=== PATIENT | male | born 1950 | race Caucasian/White ===

== ENCOUNTER 2016-10-16 08:55 | Emergency (ER) | payer MEDICARE ==
[2016-10-16 09:22] LABS: #Basophils 0.1 thou/uL (0.0-0.2); #Eosinphils 0.2 thou/uL (0.0-0.7); #Lymphocytes 1.3 thou/uL (1.20-3.40); #Monocytes 0.5 thou/uL (0.11-0.59); #Neutrophils 4.9 thou/uL (1.40-6.50); %Basophils 0.8 % (0.0-1.0); %Eosinophils 3.2 % (0.0-10.0); %Lymphocytes 18.9 % (21.0-51.0); %Monocytes 7.2 % (0.0-10.0); Hemoglobin 14.4 g/dL (14.0-18.0); Mean Corpuscular HGB CONC 34.2 g/dL (32.0-36.0); Mean Corpuscular Hemoglobin 32.2 pg (27.0-31.0); Mean Corpuscular Volume 94.2 fl (80.0-94.0); Platelet Count 170 thou/uL (130-400); RBC Distribution Width 12.7 % (11.5-14.5); Red Blood Cell (RBC) Count 4.46 mill/uL (4.70-6.10)
[2016-10-16 09:24] LABS: PTT 28.5 SEC (22.9-36.1); Prothrombin Time 13.2 SEC (12.0-14.7)
[2016-10-16 09:36] LABS: ALT (SGPT) 9 U/L (8-55); AST (SGOT) 8 U/L (5-34); Albumin 3.7 g/dL (3.4-4.8); Alkaline Phosphatase 97 U/L (40-150); Anion Gap 11 mmol/L (10-20); BUN (Urea Nitrogen) 15 mg/dL (8.4-25.7); Bilirubin, Total 0.5 mg/dL (0.2-1.2); CK (CPK) 49 U/L (30-200); Calc. Creatinine Clearance 0 mL/min (70-130); Calcium 8.9 mg/dL (7.8-10.44); Carbon Dioxide 26 mmol/L (23-31); Chloride 103 mmol/L (98-107); Estimated GFR-MDRD 79; Globulin 2.9 g/dL (2.4-3.5); Glucose 194 mg/dL (80-115); Magnesium 2.2 mg/dL (1.6-2.6); Potassium 4.6 mmol/L (3.5-5.1); Protein, Total 6.6 g/dL (5.8-8.1); Sodium 135 mmol/L (136-145)
[2016-10-16 09:42] LABS: CKMB 1.1 ng/mL (0-6.6); Troponin I 0.011 ng/mL (< 0.028)
[2016-10-16] MEDS ORDERED: Nitroglycerin 0.4 MG TAB 1 EACH ONE ×2 (09:43→11:45)
--- NOTE | 2016-10-16 10:21 | RAD ---
UPRIGHT PORTABLE CHEST 1 VIEW: Date: 10/16/16 HISTORY: 66-year-old male with chest pain. COMPARISON: 06/14/15. FINDINGS: Postop midline sternotomy and left ICD. Monitor leads overlie the chest. No confluent pneumonia, ove rt edema, or pleural effusion. Stable from prior study. IMPRESSION: No acute intrathoracic disease. Stable from prior study. POS: [facility]
[2016-10-16] MEDS ORDERED: Nitroglycerin 2% Ointment 1 INCH/1 GM Packet ONE (12:02)
== END 2016-10-16 12:05 | disposition short-term general hospital (02) ==
LOC: MADERS 08:55
DX: I25.110 Atherosclerotic heart disease of native coronary artery with unstable angina pectoris (principal); I10 Essential (primary) hypertension; E11.9 Type 2 diabetes mellitus without complications; I25.2 Old myocardial infarction; Z79.82 Long term (current) use of aspirin; Z79.899 Other long term (current) drug therapy; Z95.810 Presence of automatic (implantable) cardiac defibrillator; Z95.5 Presence of coronary angioplasty implant and graft
CPT/HCPCS: 36415; 71010; 80053; 82550; 82553; 83735; 83880; 84484; 85025; 85610; 85730; 93005; 94760

== ENCOUNTER → 2017-07-29 | Emergency (ER) | payer MEDICARE ==
[~2017-07-29] MED LIST: Iopamidol 370 76% 100 ML VIAL ONE; Ketorolac Tromethamine 30 MG/ML VIAL ONE; MORPHINE 10 MG/ML SYRINGE ONE; Ondansetron ODT 4 MG TAB ONE; Sodium Chloride 0.9% 1,000 ML BAG ONE
[2017-07-29 09:47] LABS: Bilirubin Negative (Negative); Blood, Urine Negative (Negative); Clarity Clear (Clear); Glucose, Urine (Dipstick) 500 mg/dL (Negative); Leukocyte Negative (Negative); Nitrite Negative (Negative); Protein, Urine (Dipstick) Negative (Neg-Trace); Specific Gravity, Urine 1.015 (1.005-1.030); pH, Urine 7.5 (5.0-9.0)
[2017-07-29 10:21] LABS: #Eosinphils 0.2 thou/uL (0.0-0.7); #Lymphocytes 1.5 thou/uL (1.20-3.40); #Monocytes 0.4 thou/uL (0.11-0.59); #Neutrophils 4.2 thou/uL (1.40-6.50); %Basophils 0.7 % (0.0-1.0); %Eosinophils 2.5 % (0.0-10.0); %Lymphocytes 23.6 % (21.0-51.0); %Monocytes 6.7 % (0.0-10.0); %Neutrophils 66.5 % (42.0-75.0); Hemoglobin 14.4 g/dL (14.0-18.0); Mean Corpuscular HGB CONC 35.5 g/dL (32.0-36.0); Mean Corpuscular Volume 92.9 fl (80.0-94.0); Mean Platelet Volume 7.6 fL (7.4-10.4); Platelet Count 153 thou/uL (130-400); RBC Distribution Width 11.9 % (11.5-14.5); Red Blood Cell (RBC) Count 4.38 mill/uL (4.70-6.10); White Blood Cell (WBC) Count 6.3 thou/uL (4.8-10.8)
[2017-07-29 10:33] LABS: ALT (SGPT) 8 U/L (8-55); AST (SGOT) 7 U/L (5-34); Albumin 3.4 g/dL (3.4-4.8); Alkaline Phosphatase 76 U/L (40-150); Anion Gap 11 mmol/L (10-20); BUN (Urea Nitrogen) 15 mg/dL (8.4-25.7); Bilirubin, Total 0.6 mg/dL (0.2-1.2); Calc. Creatinine Clearance 0 mL/min (70-130); Calcium 8.5 mg/dL (7.8-10.44); Carbon Dioxide 27 mmol/L (23-31); Chloride 103 mmol/L (98-107); Estimated GFR-MDRD Greater than 90; Globulin 2.6 g/dL (2.4-3.5); Glucose 202 mg/dL (80-115); Lipase 29 U/L (8-78); Potassium 4.3 mmol/L (3.5-5.1); Sodium 137 mmol/L (136-145)
--- NOTE | 2017-07-29 13:17 | CT ---
CT ABDOMEN WITH CONTRAST CT PELVIS WITH CONTRAST: DATE: 07/29/2017 HISTORY: A 66-year-old male with intermittent right flank pain for three days. COMPARISON: 05/05/2008 TECHNIQUE: IV injection of iodinated contrast media: Administered. Oral contrast media: Administered. FINDINGS: Again noted is the endograft within the infrarenal abdominal aorta. The caliber of the lower abdomin al aorta is 2 cm; there is currently no abdominal aortic aneurysm. The endograft extends into the le ft common femoral artery. There is absence of contrast material in the contralateral right common fe moral artery, the outer caliber of which is also severely narrowed, apparently occluded. There is co ntrast material in the right external iliac artery and right internal iliac artery, from retrograde f low. The bilateral kidneys, pancreas, adrenals, liver, and spleen are normal. There are cholecystec darlene clips in the gallbladder fossa. There is no small bowel dilation. There are no signs of acute colonic diverticulitis. Normal appendix. Lung bases are grossly clear. No ascites or pneumoperiton eum. No significant interval change overall. A vascular graft joins the left and right common femor al arteries. IMPRESSION: 1. No acute findings. 2. Endograft within the lower abdominal aorta and the left common iliac artery. 3. Chronically occluded right common iliac artery. 4. Femoral-femoral arterial bypass graft. 5. Status post cholecystectomy. 6. No interval change overall since 04/19/2008. [facility] POS: [facility]
== END ==
LOC: MADERS 09:09
DX: S39.011A Strain of muscle, fascia and tendon of abdomen, initial encounter (principal); I25.2 Old myocardial infarction; E11.9 Type 2 diabetes mellitus without complications; I10 Essential (primary) hypertension; F17.210 Nicotine dependence, cigarettes, uncomplicated; I25.10 Atherosclerotic heart disease of native coronary artery without angina pectoris; X58.XXXA Exposure to other specified factors, initial encounter
CPT/HCPCS: 36415; 74177; 80053; 81003; 82150; 83690; 85025; 96361; 96372; 96374; J1885; J2270; J7050; Q0162

== ENCOUNTER 2018-01-11 14:59 | Outpatient (CLI) | payer MEDICARE ==
[2018-01-11 23:18] LABS: Creatinine, Urine 78.59 mg/dL (63-166); Microalbumin Urine Less than 1.0 mg/dL (0.5-50.0)
== END 2018-01-11 15:00 | disposition home or self-care (01) ==
LOC: MADLABBHPM 14:59
PROVIDERS: ATTEND Family Medicine
DX: E11.9 Type 2 diabetes mellitus without complications (principal)
CPT/HCPCS: 82043

== ENCOUNTER 2018-01-21 12:04 | Emergency (ER) | payer MEDICARE ==
[2018-01-21 13:02] LABS: #Eosinphils 0.1 thou/uL (0.0-0.7); #Lymphocytes 2.1 thou/uL (1.20-3.40); #Monocytes 0.4 thou/uL (0.11-0.59); #Neutrophils 4.5 thou/uL (1.40-6.50); %Basophils 0.6 % (0.0-1.0); %Lymphocytes 29.4 % (21.0-51.0); %Monocytes 5.5 % (0.0-10.0); %Neutrophils 62.6 % (42.0-75.0); Mean Corpuscular HGB CONC 35.1 g/dL (32.0-36.0); Mean Corpuscular Hemoglobin 31.9 pg (27.0-31.0); Mean Platelet Volume 9.5 fL (7.4-10.4); Platelet Count 163 thou/uL (130-400); RBC Distribution Width 11.6 % (11.5-14.5); White Blood Cell (WBC) Count 7.1 thou/uL (4.8-10.8)
[2018-01-21 13:19] LABS: ALT (SGPT) 9 U/L (8-55); AST (SGOT) 9 U/L (5-34); Albumin 3.7 g/dL (3.4-4.8); Alkaline Phosphatase 81 U/L (40-150); Anion Gap 10 mmol/L (10-20); BUN (Urea Nitrogen) 11 mg/dL (8.4-25.7); Bilirubin, Total 0.8 mg/dL (0.2-1.2); Calc. Creatinine Clearance 0 mL/min (70-130); Calcium 8.8 mg/dL (7.8-10.44); Carbon Dioxide 24 mmol/L (23-31); Chloride 106 mmol/L (98-107); Estimated GFR-MDRD 85; Globulin 2.7 g/dL (2.4-3.5); Glucose 69 mg/dL (80-115); Potassium 4.1 mmol/L (3.5-5.1); Protein, Total 6.4 g/dL (5.8-8.1); Sodium 136 mmol/L (136-145)
--- NOTE | 2018-01-21 13:58 | RAD ---
PORTABLE CHEST: Date 01/21/18 PROVIDED CLINICAL HISTORY: Dyspnea. FINDINGS: Comparison made with study dated 10/16/16. Cardiac and mediastinal silhouette is unchanged in appearance. Median sternotomy changes are seen. Le ft subclavian cardiac pacing device is again seen in similar position. No focal consolidation, pleura l fluid, or pneumothorax apparent. IMPRESSION: No evidence for an acute cardiopulmonary process. POS: [facility]
[2018-01-21 14:39] LABS: Bilirubin Negative (Negative); Blood, Urine Negative (Negative); Clarity Clear (Clear); Glucose, Urine (Dipstick) Negative (Negative); Leukocyte Negative (Negative); Nitrite Negative (Negative); Protein, Urine (Dipstick) Negative (Neg-Trace); Urobilinogen 0.2 mg/dL (0.2-1.0); pH, Urine 7.5 (5.0-9.0)
== END 2018-01-21 14:57 | disposition short-term general hospital (02) ==
LOC: MADERS 12:04
DX: I20.9 Angina pectoris, unspecified (principal); I25.2 Old myocardial infarction; I10 Essential (primary) hypertension; E11.9 Type 2 diabetes mellitus without complications; F17.210 Nicotine dependence, cigarettes, uncomplicated; Z79.82 Long term (current) use of aspirin; Z79.899 Other long term (current) drug therapy
CPT/HCPCS: 36416; 71045; 80053; 81003; 83880; 84484; 85025; 93005

== ENCOUNTER 2018-05-02 12:18 | Emergency (ER) | payer MEDICARE ==
--- NOTE | 2018-05-02 12:50 | RAD ---
PORTABLE UPRIGHT FRONTAL CHEST: Date: 05/02/18 COMPARISON: 01/21/18. HISTORY: Chest pain. FINDINGS: Stable single lead AICD and midline sternotomy wires. Mild diffuse increased linear interstitial dens ity, stable. No pneumothorax, pleural fluid, focal consolidation, or alveolar edema. IMPRESSION: Stable appearance of the chest. No acute findings. POS: [facility]
[2018-05-02 12:51] LABS: #Basophils 0.1 thou/uL (0.0-0.2); #Eosinphils 0.1 thou/uL (0.0-0.7); #Lymphocytes 1.9 thou/uL (1.20-3.40); #Monocytes 0.4 thou/uL (0.11-0.59); #Neutrophils 3.2 thou/uL (1.40-6.50); %Basophils 0.9 % (0.0-1.0); %Eosinophils 1.6 % (0.0-10.0); %Lymphocytes 33.7 % (21.0-51.0); %Neutrophils 56.8 % (42.0-75.0); Hemoglobin 13.8 g/dL (14.0-18.0); Mean Corpuscular Hemoglobin 31.5 pg (27.0-31.0); Mean Corpuscular Volume 92.6 fL (78.0-98.0); Platelet Count 175 thou/uL (130-400); RBC Distribution Width 12.7 % (11.5-14.5); White Blood Cell (WBC) Count 5.7 thou/uL (4.8-10.8)
[2018-05-02 13:11] LABS: ALT (SGPT) 7 U/L (8-55); AST (SGOT) 7 U/L (5-34); Albumin 3.7 g/dL (3.4-4.8); Alkaline Phosphatase 68 U/L (40-150); Anion Gap 11 mmol/L (10-20); BUN (Urea Nitrogen) 17 mg/dL (8.4-25.7); Bilirubin, Total 0.6 mg/dL (0.2-1.2); Calc. Creatinine Clearance 0 mL/min (70-130); Calcium 8.9 mg/dL (7.8-10.44); Carbon Dioxide 23 mmol/L (23-31); Chloride 106 mmol/L (98-107); Estimated GFR-MDRD 73; Globulin 2.8 g/dL (2.4-3.5); Glucose 185 mg/dL (80-115); Potassium 4.9 mmol/L (3.5-5.1); Protein, Total 6.5 g/dL (5.8-8.1); Sodium 135 mmol/L (136-145)
== END 2018-05-02 15:03 | disposition short-term general hospital (02) ==
LOC: MADERS 12:18
DX: I20.9 Angina pectoris, unspecified (principal); I25.2 Old myocardial infarction; I10 Essential (primary) hypertension; E11.9 Type 2 diabetes mellitus without complications; F17.210 Nicotine dependence, cigarettes, uncomplicated; Z79.82 Long term (current) use of aspirin; Z79.899 Other long term (current) drug therapy
CPT/HCPCS: 36415; 71045; 80053; 83880; 84484; 85025; 93005

== ENCOUNTER 2019-06-06 09:26 | Emergency (ER) | payer MEDICARE ==
--- NOTE | 2019-06-06 10:06 | RAD ---
EXAM: Single view of the chest HISTORY: Chest pain COMPARISON: 05/02/2018 FINDINGS: Single view of the chest shows a normal sized cardiomediastinal silhouette. The pacemaker is unchanged in position. The patient is status post sternotomy. There is no evidence of consolidation, mass, or pleural effusion. The bones are unremarkable. IMPRESSION: No evidence of acute cardiopulmonary disease
[2019-06-06 10:11] LABS: #Basophils 0.1 thou/uL (0.0-0.2); #Eosinphils 0.2 thou/uL (0.0-0.7); #Lymphocytes 1.8 thou/uL (1.20-3.40); #Monocytes 0.5 thou/uL (0.11-0.59); #Neutrophils 4.9 thou/uL (1.40-6.50); %Basophils 0.7 % (0.0-1.0); %Eosinophils 2.2 % (0.0-10.0); %Lymphocytes 24.7 % (21.0-51.0); %Monocytes 6.5 % (0.0-10.0); Hemoglobin 14.5 g/dL (14.0-18.0); Mean Corpuscular HGB CONC 32.6 g/dL (32.0-36.0); Mean Corpuscular Hemoglobin 30.7 pg (27.0-31.0); Mean Corpuscular Volume 94.1 fL (78.0-98.0); Mean Platelet Volume 9.7 fL (7.4-10.4); Platelet Count 162 thou/uL (130-400); RBC Distribution Width 11.7 % (11.5-14.5); Red Blood Cell (RBC) Count 4.74 mill/uL (4.70-6.10); White Blood Cell (WBC) Count 7.5 thou/uL (4.8-10.8)
[2019-06-06 10:16] LABS: Prothrombin Time 12.8 SEC (12.0-14.7)
[2019-06-06 10:25] LABS: ALT (SGPT) 10 U/L (8-55); AST (SGOT) 7 U/L (5-34); Albumin 3.9 g/dL (3.4-4.8); Alkaline Phosphatase 76 U/L (40-110); Anion Gap 12 mmol/L (10-20); BUN (Urea Nitrogen) 12 mg/dL (8.4-25.7); Bilirubin, Total 0.7 mg/dL (0.2-1.2); Calc. Creatinine Clearance 0 mL/min (70-130); Calcium 8.6 mg/dL (7.8-10.44); Carbon Dioxide 24 mmol/L (23-31); Chloride 104 mmol/L (98-107); Estimated GFR-MDRD 75; Globulin 2.7 g/dL (2.4-3.5); Glucose 191 mg/dL (80-115); Potassium 4.6 mmol/L (3.5-5.1); Protein, Total 6.6 g/dL (5.8-8.1); Sodium 135 mmol/L (136-145)
== END 2019-06-06 12:05 | disposition short-term general hospital (02) ==
LOC: MADERS 09:26
DX: R07.9 Chest pain, unspecified (principal); I25.10 Atherosclerotic heart disease of native coronary artery without angina pectoris; I25.2 Old myocardial infarction; I10 Essential (primary) hypertension; E11.9 Type 2 diabetes mellitus without complications; E78.5 Hyperlipidemia, unspecified; F17.210 Nicotine dependence, cigarettes, uncomplicated; Z79.82 Long term (current) use of aspirin; Z79.899 Other long term (current) drug therapy; Z95.1 Presence of aortocoronary bypass graft; Z79.02 Long term (current) use of antithrombotics/antiplatelets; Z79.84 Long term (current) use of oral hypoglycemic drugs
CPT/HCPCS: 36416; 71045; 80053; 83880; 84484; 85025; 85610; 93005

== ENCOUNTER 2023-07-26 12:11 | Emergency (ER) | payer OTHER, SELFPAY ==
[~2023-07-26 12:11] MED LIST changes: -Ketorolac Tromethamine 30 MG/ML VIAL ONE; -MORPHINE 10 MG/ML SYRINGE ONE; -Ondansetron ODT 4 MG TAB ONE; -Sodium Chloride 0.9% 1,000 ML BAG ONE
[2023-07-26] MEDS ORDERED: Ketorolac Tromethamine 30 MG (1 mL) VIAL ONE (12:41)
[2023-07-26 13:11] LABS: #Eosinphils 0.2 thou/uL (0.0-0.7); #Lymphocytes 1.9 thou/uL (1.20-3.40); #Monocytes 0.4 thou/uL (0.11-0.59); %Basophils 0.7 % (0.0-1.0); %Eosinophils 2.8 % (0.0-10.0); %Lymphocytes 28.6 % (21.0-51.0); %Monocytes 6.6 % (0.0-10.0); %Neutrophils 61.3 % (42.0-75.0); Hematocrit 44.6 % (42.0-52.0); Hemoglobin 14.9 g/dL (14.0-18.0); Mean Corpuscular HGB CONC 33.3 g/dL (32.0-36.0); Mean Corpuscular Hemoglobin 31.1 pg (27.0-31.0); Mean Corpuscular Volume 93.5 fl (78.0-98.0); Platelet Count 157 10x3/uL (130-400); RBC Distribution Width 12.4 % (11.5-14.5); Red Blood Cell (RBC) Count 4.77 mill/uL (4.70-6.10); White Blood Cell (WBC) Count 6.5 10x3/uL (4.8-10.8)
[2023-07-26 13:27] LABS: ALT (SGPT) 9 U/L (8-55); AST (SGOT) 8 U/L (5-34); Albumin 3.9 g/dL (3.4-4.8); Alkaline Phosphatase 80 U/L (40-110); Anion Gap 12 mmol/L (10-20); BUN (Urea Nitrogen) 13 mg/dL (8.4-25.7); Bilirubin, Total 0.7 mg/dL (0.2-1.2); Calc. Creatinine Clearance 0 mL/min (70-130); Carbon Dioxide 23 mmol/L (23-31); Chloride 103 mmol/L (98-107); Estimated GFR 86; Glucose 191 mg/dL (83-110); Lipase 26 U/L (8-78); Magnesium 1.8 mg/dL (1.6-2.6); Potassium 4.4 mmol/L (3.5-5.1); Protein, Total 6.9 g/dL (5.8-8.1); Sodium 134 mmol/L (136-145)
[2023-07-26 14:04] LABS: Bilirubin Negative (Negative); Blood, Urine Negative (Negative); Clarity Clear (Clear); Glucose, Urine (Dipstick) Negative (Negative); Ketone, Urine Negative (Negative); Leukocyte Moderate (Negative); Nitrite Negative (Negative); Protein, Urine (Dipstick) Negative (Neg-Trace)
[2023-07-26 14:18] LABS: Bacteria/HPF 1+ HPF (None Seen); CAUTI Indications for Culture Pelvic or flank pain; Mucous/LPF None Seen LPF (<2+); RBC/HPF 0-3 HPF (0-3); Squamous Epithelial 0-3 HPF (0-3)
[2023-07-26 14:19] LABS: Urine Culture Reflex No No
== END 2023-07-26 14:22 | disposition home or self-care (01) ==
LOC: MADERS 12:11
DX: K59.00 Constipation, unspecified (principal); E11.9 Type 2 diabetes mellitus without complications; I10 Essential (primary) hypertension; F17.210 Nicotine dependence, cigarettes, uncomplicated; Z79.82 Long term (current) use of aspirin; Z79.899 Other long term (current) drug therapy; Z79.84 Long term (current) use of oral hypoglycemic drugs
CPT/HCPCS: 74177; 80053; 81001; 83605; 83690; 83735; 85025; J1885; Q9967